=== PATIENT | male | born 1965 ===

== ENCOUNTER 2021-10-23 06:05 | Emergency (ER) | payer OTHER ==
[2021-10-23] MEDS ORDERED: Ibuprofen 600 MG Tab PO ONE (06:44)
== END 2021-10-23 10:15 | disposition home or self-care (01) ==
LOC: LB.ED 06:05
DX: F32.A Depression, unspecified (principal); Z88.0 Allergy status to penicillin
CPT/HCPCS: 36415; 80053; 80307; 85025; 99285; A0425; A0429; A9270-GY